=== PATIENT | male | born 1995 | race Caucasian/White ===

== ENCOUNTER → 2021-10-31 07:06 | Outpatient (CLI) | payer OTHER, SELFPAY ==
--- NOTE | 2021-10-31 | DI.MRI.S_ITS ---
PROCEDURE: MR KNEE LT WO CON INDICATIONS: LEFT KNEE INJURY TECHNIQUE: Noncontrast sagittal PD fast spin echo and T2 fast spin echo with fat saturation, sagittal 3-D FLASH with fat saturation; coronal T1 spin echo and PD fast spin echo with fat saturation, and axial PD fast spin echo with fat saturation through the knee. COMPARISON: None. FINDINGS: Image quality: Excellent. Menisci: Medial and lateral menisci are intact. The meniscal root ligaments appear intact. Cruciate ligaments: The anterior and posterior cruciate ligaments appear intact. Medial structures: Low-grade MCL sprain is seen. The posterior oblique ligament, semimembranosus tendon insertions, oblique popliteal ligament, and meniscocapsular junction appear intact. Visualized portions of the pes anserinus tendons appear normal. No abnormal bursal fluid. Lateral structures: The lateral collateral ligament, long and short heads of the biceps femoris tendon appear intact. The popliteus tendon appears normal; the popliteofibular ligament appears intact. The posterosuperior and anteroinferior popliteomeniscal fascicles appear intact. The arcuate and fabellofibular ligaments appear intact, on either side of the lateral inferior geniculate artery. Iliotibial band appears normal. Anterior structures: There is suggestion of sprain/low-grade partial-thickness tear involving medial patellofemoral ligament. No full-thickness ligament rupture. The quadriceps and patellar tendons appear intact. Patellar alignment is normal. No femoral trochlear dysplasia or ventral trochlear prominence. No edema in the infrapatellar fat pad. Bones and cartilage: There is mild edema involving medial periphery of medial femoral condyle. Mild edema involving posterior aspect of medial and lateral tibial plateaus is also seen. No discrete fracture line is noted. The cartilage of the medial and lateral femorotibial compartments, as well as the patellofemoral compartment, appears normal in thickness. Joint space: There is physiologic knee joint fluid. No Renae's cyst. Normal appearing synovial plicae are incidentally noted. IMPRESSION: 1. Suggestion of low-grade MCL sprain. Low-grade sprain/partial-thickness tear is also seen involving medial patellofemoral ligament. No full-thickness ligament rupture. Patella alignment is anatomic. 2. Bony contusion involving medial periphery of medial femoral condyle and posterior periphery of both medial and lateral tibial plateaus. No fracture or dislocation is seen. Articulating cartilages are intact. 3. Cruciate ligaments are intact. 4. No focal meniscal tear. Dictated by: Fahad Gonzalez M.D. on 10/31/2021 at 9:02 Approved by: Fahad Gonzalez M.D. on 10/31/2021 at 9:55
== END ==
PROVIDERS: Referring Provider Student in an Organized Health Care Education/Training Program; Visit Provider Student in an Organized Health Care Education/Training Program
DX: S76.112A Strain of left quadriceps muscle, fascia and tendon, initial encounter (principal); S80.02XA Contusion of left knee, initial encounter; X58.XXXA Exposure to other specified factors, initial encounter
CPT/HCPCS: 73721